=== PATIENT | male | born 1980 | race Caucasian/White ===

== ENCOUNTER 2017-01-09 09:20 | Emergency (ER) | payer OTHER ==
[~2017-01-09] VITALS: Ht 180.3 cm; Wt 72.6 kg
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
[2017-01-09] MEDS ORDERED: CLOBETASOL PROP15 G1 TOP (10:03)
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
[2017-01-09] MEDS ORDERED: CYCLOBENZAPRINE10 M1 PO (11:31)
[2017-01-09] MEDS ORDERED: KETOROLAC TROME10 M1 PO (11:31)
[2017-01-09 11:32] VITALS: BP 118/80
== END 2017-01-09 11:36 ==
LOC: ERH 09:20
DX: S16.1XXA Strain of muscle, fascia and tendon at neck level, initial encounter (principal); V49.40XA Driver injured in collision with unspecified motor vehicles in traffic accident, initial encounter
CPT/HCPCS: 72050; 96372; J1885